=== PATIENT | male | born 1940 | race Caucasian/White ===

== ENCOUNTER 2023-01-18 14:56 | Emergency (ER) | payer MEDICARE ==
[~2023-01-18] VITALS: Ht 170.2 cm; Wt 91.6 kg
[2023-01-18] MEDS: ACETAMINOPHEN 500 MG TABLET PO ONE ×2 (16:09→16:11)
[2023-01-18 16:18] VITALS: BP 149/84
== END 2023-01-18 16:19 | disposition home or self-care (01) ==
LOC: EDH 14:56
DX: M25.511 Pain in right shoulder (principal); I10 Essential (primary) hypertension; E78.00 Pure hypercholesterolemia, unspecified; G20 Parkinson's disease; G89.29 Other chronic pain; W18.30XA Fall on same level, unspecified, initial encounter; Y93.89 Activity, other specified; Y92.009 Unspecified place in unspecified non-institutional (private) residence as the place of occurrence of the external cause; Y99.8 Other external cause status
CPT/HCPCS: 73030